=== PATIENT | male | born 1950 | race Caucasian/White ===

== ENCOUNTER → 2023-08-28 10:08 | Outpatient (REF) | payer OTHER, SELFPAY | LOC: DHCBC MAIN 10:08 | PROVIDERS: ATTENDING PHYSICIAN Internal Medicine Cardiovascular Disease; FAMILY PHYSICIAN Family Medicine | DX: I10 Essential (primary) hypertension (principal); I31.39 Other pericardial effusion (noninflammatory) | CPT/HCPCS: 93306 ==

== ENCOUNTER → 2024-04-25 11:07 | Outpatient (REF) | payer OTHER, SELFPAY | LOC: RCS 11:07 | PROVIDERS: ATTENDING PHYSICIAN Student in an Organized Health Care Education/Training Program; FAMILY PHYSICIAN Family Medicine | DX: I25.10 Atherosclerotic heart disease of native coronary artery without angina pectoris (principal) | CPT/HCPCS: 93306 ==